=== PATIENT | male | born 1990 ===

== ENCOUNTER 2017-11-12 05:59 | Inpatient (IN) | payer MEDICAID, OTHER ==
[2017-11-12] MEDS ORDERED: Sodium Chloride 0.9% 1,000 ML IV STA ×2 (06:18→08:37)
--- NOTE | 2017-11-12 06:22 | ED PDOC ---
HPI: Psych/Substance Abuse Time Seen by Provider: 11/12/17 06:02 Chief Complaint (Nursing): Substance Abuse Chief Complaint (Provider): Substance Abuse ED Caveat: Acuity of Condition History/Exam Limitations: clinical condition (overdose) Current Symptoms Are (Timing): Still Present Modifying Factor(s): Other (crystal meth) Associated Symptoms: Anxiety Additional Complaint(s): 27 year old male with pmHx of HIV and substance abuse, arrives via EMS after patient's friend called because he was experiencing anxiety after a "bad trip" on crystal meth. Hx limited due to patient's inability to communicate. Patient is unable to quantify amount taken. Past Medical History Reviewed: Nursing Documentation, Vital Signs, Unable To Obtain (due to overdose) Vital Signs: Last Vital Signs Temp 97.5 F L 11/12/17 06:06 Pulse 139 H 11/12/17 06:06 Resp 18 11/12/17 06:06 BP 162/87 H 11/12/17 06:06 Pulse Ox 95 11/12/17 06:06 - Family History Family History: States: Unknown Family Hx - Social History Drugs: Methamphetamine - Home Medications Home Medications: Ambulatory Orders Medication Instructions Recorded Benztropine [Cogentin] 1 mg PO BID 11/12/17 Doxycycline Hyclate [Targadox] 50 mg PO BID 11/12/17 Elviteg/Cob/Emtri/Tenof Alafen 1 tab PO DAILY 11/12/17 [Genvoya Tablet] FLUoxetine [Prozac] 20 mg PO DAILY 11/12/17 Ibuprofen [Motrin Tab] 800 mg PO Q8 PRN 11/12/17 Loratadine [Claritin] 10 mg PO DAILY 11/12/17 Risperidone [Risperdal] 2 mg PO DAILY 11/12/17 - Allergies Allergies/Adverse Reactions: Allergies Allergy/AdvReac Type Severity Reaction Status Date / Time No Known Allergies Allergy Verified 11/12/17 06:09 Review of Systems Review Of Systems: ROS cannot be obtained secondary to pt's inabilty to answer questions. (due to overdose) Physical Exam - Reviewed Nursing Documentation Reviewed: Yes Vital Signs Reviewed: Yes - Physical Exam Appears: Positive for: No Acute Distress Head Exam: Positive for: ATRAUMATIC, NORMAL INSPECTION, NORMOCEPHALIC Skin: Positive for: Normal Color Eye Exam: Positive for: Normal appearance ENT: Positive for: Other (making frequent lip-smacking movement) Neck: Positive for: Normal Cardiovascular/Chest: Positive for: Tachycardia. Negative for: Regular Rate, Rhythm Respiratory: Positive for: Normal Breath Sounds. Negative for: Respiratory Distress Extremity: Positive for: Normal ROM (upper/lower). Negative for: Deformity ( upper/lower) Neurologic/Psych: Positive for: Oriented (x1), Mood/Affect (anxiety; tearful) - Laboratory Results Result Diagrams: 11/12/17 06:48 11/12/17 15:21 - ECG O2 Sat by Pulse Oximetry: 95 Medical Decision Making Medical Decision Making: A/P: 27 year old male, pmHx of HIV and drug abuse, presenting with overdose of amphetamines. Symptomatic treatment with IV fluids and blood work. --EKG --Labs --Ativan 2,g IV --NS 1,000mls IV per 1,000mls/hr Time: 625 EKG: sinus tachycardia at 116 BMP. Atrial enlargement, no ST or T wave changes, normal intervals. Time: 0700 --Patient is endorsed to Dr. Kaiser, pending clinical sobriety. Scribe Attestation: Documented by Francisca Lyle, acting as a scribe for Kirt Gentile MD. Provider Scribe Attestation: All medical record entries made by the Scribe were at my direction and personally dictated by me. I have reviewed the chart and agree that the record accurately reflects my personal performance of the history, physical exam, medical decision making, and the department course for this patient. I have also personally directed, reviewed, and agree with the discharge instructions and disposition. Disposition - Clinical Impression Clinical Impression: Drug-induced psychotic disorder - Patient ED Disposition Is Patient to be Admitted: Transfer of Care - Disposition Disposition: Transfer of Care Disposition Time: 07:00 Condition: FAIR Patient Signed Over To: Niya Kaiser Handoff Comments: pending clinical sobriety
[2017-11-12 06:56] LABS: BASO % 0.4 % (0.0-2.0); EOS % 0.2 % (0.0-4.0); LYMPH # 1.6 K/uL (1.0-4.3); LYMPH % 24.9 % (20.0-40.0); MEAN CELL VOLUME 99.1 fl (80.0-94.0); MEAN CORPUSCULAR HEMOGLOBIN 34.8 pg (27.0-31.0); MEAN CORPUSCULAR HGB CONC 35.1 g/dL (33.0-37.0); MEAN PLATELET VOLUME 8.2 fl (7.2-11.7); MONO # 0.6 K/uL (0.0-0.8); MONO % 9.2 % (0.0-10.0); NEUT # 4.2 K/uL (1.8-7.0); NEUT % 65.3 % (50.0-75.0); NRBC % 0.1 % (0.0-0.0); RBC 5.17 Mil/uL (4.40-5.90); WHITE BLOOD COUNT 6.4 K/uL (4.8-10.8)
--- NOTE | 2017-11-12 07:02 | ED PDOC ---
- Laboratory Results Result Diagrams: 11/12/17 06:48 11/12/17 06:48 - ECG O2 Sat by Pulse Oximetry: 98 (RA) Pulse Ox Interpretation: Normal Medical Decision Making Medical Decision Making: Time: 0700 Patient signed out over to me by Dr. Gentile pending clinical sobriety. Scribe Attestation: Documented by Supriya Pete, acting as a scribe for Niya Kaiser MD. Provider Scribe Attestation: All medical record entries made by the Scribe were at my direction and personally dictated by me. I have reviewed the chart and agree that the record accurately reflects my personal performance of the history, physical exam, medical decision making, and the department course for this patient. I have also personally directed, reviewed, and agree with the discharge instructions and disposition. 9.00a - patient awake but calm. Still tachycardic. Serum CO2 17. Will give more IVF 1:30p - admitted to psych/ Disposition Doctor Will See Patient In The: Hospital - Clinical Impression Clinical Impression: Drug-induced psychotic disorder - POA Present On Arrival: None - Disposition Disposition: Admitted as In-Patient Disposition Time: 13:30 Condition: FAIR Forms: [employer] ([place])
[2017-11-12 07:19] LABS: BLOOD UREA NITROGEN 12 mg/dl (9-20); CALCIUM 10.4 mg/dL (8.4-10.2); GFR AFRICAN-AMERICAN > 60; GFR NON-AFRICAN AMERICAN > 60
[2017-11-12 07:20] LABS: ACETAMINOPHEN < 10.0 ug/ml (10.0-30.0); SALICYLATE < 1.0 mg/dl
[2017-11-12 07:33] LABS: BARBITURATES, UR NEGATIVE (NEGATIVE); BENZODIAZEPINES, UR NEGATIVE (NEGATIVE); OPIATES, UR NEGATIVE (NEGATIVE); PHENCYCLIDINE, UR NEGATIVE (NEGATIVE)
--- NOTE | 2017-11-12 12:51 | CARD ---
APPROVED REPORT Date of service: 11/12/2017 EKG Measurement Heart [id number] <Conclusion> Sinus tachycardia consider biatrial enlargement Abnormal ECG
[2017-11-12 15:57] LABS: BLOOD UREA NITROGEN 10 mg/dl (9-20); CALCIUM 8.9 mg/dL (8.4-10.2); GFR AFRICAN-AMERICAN > 60; GFR NON-AFRICAN AMERICAN > 60
[2017-11-12] MEDS ORDERED: DiphenhydrAMINE 50 mg/ml Inj IM PRN (17:56)
[2017-11-12] MEDS ORDERED: Alum-Mag Hydrox-Simethicone Susp (30 mL) PO PRN (17:56)
[2017-11-12] MEDS ORDERED: Magnesium Hydroxide Susp 30 ml UD PO PRN (17:56)
[2017-11-13 05:48] VITALS: O2SAT 95
[2017-11-13] MEDS ORDERED: Patient's Own Med (Elviteg/Cob/Emtri/Tenof Alafen [Genvoya Tablet] 1 TAB) PO SCH (09:00)
[2017-11-13 09:38] VITALS: RESP 20
--- NOTE | 2017-11-13 14:30 | PCM.PSYCH ---
Initial Psychiatric Evaluation - Initial Psychiatric Evaluation Type of Admission: Voluntary Legal Status: Capacity Chief Complaint (in patient's own words): I keep relapsing on drugs History of Present Illness and Precipitating Events: pt is 27ys old male with previous diagnosis of depression , cannabis and stimulant abuse pt brought to ER by EMS after presenting with disorganized behavior , while intoxicated with amphetamine pt is currently in treatment for depression , has three previous psychiatric hospitalizations in past three years due to relapse on amphetamines resulting in psychotic and disorganized behavior pt reported he has been increasingly depressed recently as he has no social support with family in [facility] and also recently his job which resulted in his relapse on amphetamines pt on unit presenting with depressed mood and affect, low energy and motivation denied command hallucinations YOLIS TORRES contacted the pt.s alternate contact provided. The pt.s friend, Edmundo [phone], reported that the pt. has frequent relapses from his drug abuse with crystal meth. The pt.s friend reported that the pt. has been admitted to inpatient psychiatric treatment numerous times before. The pt.s friend reported that the pt. is very depressed. The pt.s friend reported that the pt. has made threats to hurt himself, with the last time being 3 weeks. The pt.s friend reported that the pt. was last admitted for psychiatric inpatient about 3 months. The pt.s friend believes that the pt. may be in need of psychiatric treatment. The pt.s friend reported that the pt. would benefit from admission to inpatient admission. YOLIS TORRES received a call from the pt.s therapist who confirmed the pt. has a history of previous admissions and is currently linked to a program for his crystal meth abuse, which he believes is the main cause for his psychotic features. Current Medications: Active Medications Generic Name Dose Route Start Last Admin Trade Name Freq PRN Reason Stop Dose Admin Acetaminophen 650 mg 11/12/17 17:56 Tylenol 325mg Tab PO Q4 PRN Pain, moderate (4-7) Al Hydrox/Mg Hydrox/Simethicone 30 ml 11/12/17 17:56 Maalox Plus 30 Ml PO Q4 PRN Dyspepsia Diphenhydramine HCl 50 mg 11/12/17 17:56 Benadryl IM Q6 PRN Extrapyramidal S/S Unable PO Diphenhydramine HCl 50 mg 11/12/17 18:16 Benadryl PO HS PRN Sleep Diphenhydramine HCl 50 mg 11/12/17 18:17 Benadryl PO Q6 PRN Dystonic reaction/EPS Fluoxetine HCl 20 mg 11/13/17 10:45 Prozac PO DAILY [facility] Haloperidol 5 mg 11/12/17 17:56 Haldol PO Q4 PRN Agitation Haloperidol Lactate 5 mg 11/12/17 17:56 Haldol IM Q4 PRN Agitation, Unable to Take PO Home Med 1 tab 11/13/17 09:00 Elviteg/Cob/Emtri/Tenof Alafen [Genvoya Tablet] PO DAILY [facility] Lorazepam 2 mg 11/12/17 17:56 Ativan IM Q4 PRN Anxiety/Agitation,Unable PO Lorazepam 2 mg 11/12/17 18:20 Ativan PO Q8 PRN Anxiety Magnesium Hydroxide 30 ml 11/12/17 17:56 Milk Of Magnesia PO HS PRN Constipation Risperidone 1 mg 11/13/17 10:45 Risperdal Tab PO DAILY [facility] Risperidone 1 mg 11/13/17 22:00 Risperdal Tab PO HS [facility] Past Psychiatric History - Past Psychiatric History Explanation of prior treatment: three inpatient hospitalizations History of ETOH/Drug Use: cannabis and amphetamine abuse Pertinent Medical Hx (Current Medical&Sleep Prob, Allergies): Allergies Allergy/AdvReac Type Severity Reaction Status Date / Time No Known Allergies Allergy Verified 11/12/17 06:09 Benztropine [Cogentin] 1 mg PO BID 11/12/17 Doxycycline Hyclate [Targadox] 50 mg PO BID 11/12/17 Elviteg/Cob/Emtri/Tenof Alafen [Genvoya Tablet] 1 tab PO DAILY 11/12/17 FLUoxetine [Prozac] 20 mg PO DAILY 11/12/17 Ibuprofen [Motrin Tab] 800 mg PO Q8 PRN 11/12/17 Loratadine [Claritin] 10 mg PO DAILY 11/12/17 Risperidone [Risperdal] 2 mg PO DAILY 11/12/17 Mental Status Examination - Personal Presentation Personal Presentation: Looks younger than stated age - Affect Affect: Constricted - Motor Activity Motor Activity: Psychomotor Retardation - Reliability in Providing Information Reliability in Providing Information: Fair - Speech Speech: Relevant - Mood Mood: Depressed, Anxious - Formal Thought Process Formal Thought Process: Circumstantial - Hallucinations/Delusions Additional comments: pt denied any current perceptual disturbances - Cognitive Functions Orientation: Person, Place, Situation Sensorium: Alert Attention/Concentration: Attentive Judgement: Imparied, as evidence by: Poor judgement, Imparied, as evidence by: Lack of insight into illness - Risk Risk: Withdrawal, Diminished functioning - Strength & Assets Inventory Strength & Assets Inventory: Life experience - Limitations Additional comments: poor social support DSM 5 DX - DSM 5 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
--- NOTE | 2017-11-13 14:52 | CP.PCM.CON ---
History of Present Illness - History of Present Illness History of Present Illness: 27 yo male with history of HIV admitted in Psyche unit because of Depression. Patient admitted taking crystalized meth at least twice a month. Last take was 2 days ago. Review of Systems - Review of Systems All systems: reviewed and no additional remarkable complaints except (aside from those mentioned above, 12 point system review were negative by me) Past Patient History - Tetanus Immunizations Tetanus Immunization: Unknown - Past Medical History & Family History Past Medical History?: No - Past Social History Smoking Status: Never Smoked Chewing Tobacco Use: No Cigar Use: No Alcohol: None Drugs: Cannabis, Methamphetamine Home Situation {Lives}: Friends - CARDIAC Hx Cardiac Disorders: No - PULMONARY Hx Respiratory Disorders: No Hx Tuberculosis: No - NEUROLOGICAL Hx Neurological Disorder: No HX Cerebrovascular Accident: No Hx Seizures: No - HEENT Hx HEENT Problems: No - RENAL Hx Chronic Kidney Disease: No - ENDOCRINE/METABOLIC Hx Endocrine Disorders: No - HEMATOLOGICAL/ONCOLOGICAL Hx AIDS: Yes (x 10 yrs) Hx Cancer: No Hx Human Immunodeficiency Virus (HIV): Yes - INTEGUMENTARY Hx Dermatological Problems: No - MUSCULOSKELETAL/RHEUMATOLOGICAL Hx Musculoskeletal Disorders: No - GASTROINTESTINAL Hx Gastrointestinal Disorders: No - GENITOURINARY/GYNECOLOGICAL Hx Genitourinary Disorders: No Hx Sexually Transmitted Disorders: No - PSYCHIATRIC Hx Physical Abuse: No Hx Sexual Abuse: No Hx Substance Use: Yes (crystal meth x 1 yr) - SURGICAL HISTORY Hx Surgeries: No Other/Comment: Testicular surgery for hydrocele. - ANESTHESIA Hx Anesthesia: Yes Hx Anesthesia Reactions: No Meds Allergies/Adverse Reactions: Allergies Allergy/AdvReac Type Severity Reaction Status Date / Time No Known Allergies Allergy Verified 11/12/17 06:09 - Medications Medications: Current Medications Acetaminophen (Tylenol 325mg Tab) 650 mg PO Q4 PRN PRN Reason: Pain, moderate (4-7) Al Hydrox/Mg Hydrox/Simethicone (Maalox Plus 30 Ml) 30 ml PO Q4 PRN PRN Reason: Dyspepsia Diphenhydramine HCl (Benadryl) 50 mg IM Q6 PRN PRN Reason: Extrapyramidal S/S Unable PO Diphenhydramine HCl (Benadryl) 50 mg PO HS PRN PRN Reason: Sleep Diphenhydramine HCl (Benadryl) 50 mg PO Q6 PRN PRN Reason: Dystonic reaction/EPS Fluoxetine HCl (Prozac) 20 mg PO DAILY [facility] Haloperidol (Haldol) 5 mg PO Q4 PRN PRN Reason: Agitation Haloperidol Lactate (Haldol) 5 mg IM Q4 PRN PRN Reason: Agitation, Unable to Take PO Home Med (Elviteg/Cob/Emtri/Tenof Alafen [Genvoya Tablet]) 1 tab PO DAILY [facility] Lorazepam (Ativan) 2 mg IM Q4 PRN PRN Reason: Anxiety/Agitation,Unable PO Lorazepam (Ativan) 2 mg PO Q8 PRN PRN Reason: Anxiety Magnesium Hydroxide (Milk Of Magnesia) 30 ml PO HS PRN PRN Reason: Constipation Risperidone (Risperdal Tab) 1 mg PO DAILY [facility] Risperidone (Risperdal Tab) 1 mg PO HS [facility]ANN Physical Exam - Constitutional Appears: No Acute Distress - Head Exam Head Exam: ATRAUMATIC - Eye Exam Eye Exam: absent: Scleral icterus - ENT Exam ENT Exam: Mucous Membranes Moist - Neck Exam Neck exam: Negative for: Meningismus - Respiratory Exam Respiratory Exam: absent: Rales, Rhonchi, Wheezes, Respiratory Distress - Cardiovascular Exam Cardiovascular Exam: REGULAR RHYTHM, +S1, +S2 - GI/Abdominal Exam GI & Abdominal Exam: Soft. absent: Tenderness - Rectal Exam Rectal Exam: Deferred - Extremities Exam Extremities exam: Negative for: pedal edema - Back Exam Back exam: NORMAL INSPECTION - Neurological Exam Neurological exam: Alert, Oriented x3 - Psychiatric Exam Psychiatric exam: Normal Affect - Skin Skin Exam: Dry, Intact Results - Vital Signs Recent Vital Signs: Last Vital Signs Temp 98.6 F 11/13/17 09:50 Pulse 106 H 11/13/17 09:50 Resp 20 11/13/17 09:50 BP 108/63 11/13/17 09:50 Pulse Ox 95 11/13/17 05:48 - Labs Result Diagrams: 11/12/17 06:48 11/12/17 15:21 Labs: Laboratory Results - last 24 hr 11/12/17 15:21 Sodium 140 Potassium 4.2 Chloride 106 Carbon Dioxide 19 L Anion Gap 19 BUN 10 Creatinine 0.7 L Est GFR ( Amer) > 60 Est GFR (Non-Af Amer) > 60 Random Glucose 103 Calcium 8.9 Assessment & Plan (1) Depression Status: Acute Comment: psyche is managing (2) Amphetamine abuse, episodic Status: Acute Comment: psyche is managing (3) HIV disease Status: Acute Comment: on antiretroviral drugs. advised to bring medications to hospital
[2017-11-13 18:42] VITALS: BP 115/65; PULSE 104; TEMP 98.1
--- NOTE | 2017-11-14 13:24 | PCM.PYCHDC ---
Mental Status Examination - Mental Status Examination Orientation: Person, Place, Situation Memory: Intact Mood: Neutral Affect: Broad Speech: Appropriate Attention: WNL Concentration: WNL Association: WNL Fund of Knowledge: WNL Formal Thought Process: No Impairment Description of patient's judgement and insight: partial insight , poor judgment Psychotic Thoughts and Behaviors: pt on addischarge denied any psychotic symptoms, non elicited i Suicidal Ideation: No Current Homicidal Ideation?: No Discharge Summary - Discharge Note Reason for Hospitalization: pt is 27ys old male with previous diagnosis of depression , cannabis and stimulant abuse pt brought to ER by EMS after presenting with disorganized behavior , while intoxicated with amphetamine pt is currently in treatment for depression , has three previous psychiatric hospitalizations in past three years due to relapse on amphetamines resulting in psychotic and disorganized behavior pt reported he has been increasingly depressed recently as he has no social support with family in [facility] and also recently his job which resulted in his relapse on amphetamines pt on unit presenting with depressed mood and affect, low energy and motivation denied command hallucinations YOLIS TORRES contacted the pt.s alternate contact provided. The pt.s friend, Edmundo [phone], reported that the pt. has frequent relapses from his drug abuse with crystal meth. The pt.s friend reported that the pt. has been admitted to inpatient psychiatric treatment numerous times before. The pt.s friend reported that the pt. is very depressed. The pt.s friend reported that the pt. has made threats to hurt himself, with the last time being 3 weeks. The pt.s friend reported that the pt. was last admitted for psychiatric inpatient about 3 months. The pt.s friend believes that the pt. may be in need of psychiatric treatment. The pt.s friend reported that the pt. would benefit from admission to inpatient admission. YOLIS TORRES received a call from the pt.s therapist who confirmed the pt. has a history of previous admissions and is currently linked to a program for his crystal meth abuse, which he believes is the main cause for his psychotic features. Consultations:: List each consultation separately and include: 1. Reason for request. 2. Findings. 3. Follow-up Summary of Hospital Course include:: 1. Description of specific treatment plan utilized for patients during their course of treatmen. 2. Summarize the time- course for resolution of acute symptoms and/or regressed behaviors. 3. Describe issues identified and worked on during hospitalization. 4. Describe medication utilized. 5. Describe medical problems identified and treated. 6. Reassessment of suicide risk Summary of Hospital Course: pt on admission was re started on risperdal 1mg bid and cogentin pt was started on prozac 20mg for depression medical consult was provided , motivational therapy provided in reference to amphetamine abuse social worker school contacted outpatient therapist for collateal information on discharge pt mental status wa stable , denied any current suicidal or homicidal ideation denied perceptual disturbances pt to follow up with outpatient therapist and psychiatrist at [facility] - Final Diagnosis (DSM 5) Condition upon Discharge: GOOD 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
--- NOTE | 2017-11-14 13:52 | PCM.BM ---
Treatment Plan Problems - Problems identified on initial assessmt paranoia Date Initiated: 11/12/17 Date resolved: 11/13/17 Status: Referred Treatment assets and liabiliti Patient Assests: cooperative, self-reliant, ADL independent, physically healthy Patient Liabilities: poor support system, relationship conflicts, substance abuse, medical problems, language/speech - Milieu Protocol Maintain good personal hygiene: daily Encourage regular showers, daily Remind patient to perform daily oral care Maintain personal safety: daily Educate patient to report safety concerns to staff, daily Monitor environment for contraband/sharps Medication safety: Monitor for expected outcome, potential side effects: daily, Assess barriers to learning: daily, Assess readiness for medication education: daily Milieu Narrative: restart risperidone restart prozac motivational, group and supportive therapy Family Contact Family involvement: Velma/SO not involved Family contact: Patient declines to allow family contact at present Family contact name: Pt declined. - Goals for Treatment Patient goals for treatment: Pt reported he will go to rehab, yet presents with poor insight and is superficial and guarded. Discharge/Continuing Care - Education Needs Education Needs: Patient Medication, Patient Diagnosis/Disease Process, Patient Coping Skills, Patient Placement options, Patient Community resources, Patient Aftercare Safety Plan - Discharge Discharge Criteria: Tolerates medication w/o severe side effects, Free of paranoid thoughts, Free of agitation, Normal sleep pattern, Reduction of target symptoms Discharge to:: Home - Additional Comments 11/14/17 13:53 Video translation conducted by Fito #[id number] in treatment team. Pt is being discharged after signing a 48 hour notice. Pt is discharge focused and appears superficially cooperative with poor insight into his methamphetamine use. Pt reported he is "better" and listed sleep, appetite and emotions as improving. - Treatment Team Participation Patient/Family/SO Statement: restart risperidone restart prozac motivational, group and supportive therapy Discussed with Family/SO: No Was Patient/Family/SO present at Treatment Team Meeting: Yes
== END 2017-11-14 15:00 | disposition home or self-care (01) | DRG 715 ==
LOC: H.ER 05:59 → H.ERHOLD 14:07 → H.PSYCH 17:28
PROVIDERS: ADMIT Psychiatry & Neurology Psychiatry; ATTEND Psychiatry & Neurology Psychiatry
PROC: HZ52ZZZ Individual Psychotherapy for Substance Abuse Treatment, Cognitive-Behavioral (ICD-10-PCS; principal; 2017-11-12)
PROC: GZHZZZZ Group Psychotherapy (ICD-10-PCS; 2017-11-12)
PROC: GZ58ZZZ Individual Psychotherapy, Cognitive-Behavioral (ICD-10-PCS; 2017-11-12)
DX: F15.159 Other stimulant abuse with stimulant-induced psychotic disorder, unspecified (principal); F15.129 Other stimulant abuse with intoxication, unspecified; Z21 Asymptomatic human immunodeficiency virus [HIV] infection status; F12.10 Cannabis abuse, uncomplicated; F32.9 Major depressive disorder, single episode, unspecified; F41.9 Anxiety disorder, unspecified; Z91.5 Personal history of self-harm